=== PATIENT | male | born 1975 | race Caucasian/White ===

== ENCOUNTER 2019-12-27 10:05 | Day surgery (SDC) | payer OTHER, SELFPAY ==
[2019-12-26 13:51] LABS: Probe Check PASS; Specimen Processing Control PASS
[2019-12-27] VITALS (10 sets, daily range): BP systolic 113–133; BP diastolic 60–85; PULSE 63–90; RESP 16; TEMP 36.7–37.6; O2SAT 96–99; BMI 48.9; BMI 22.1
--- NOTE | 2019-12-27 | TONS_PTH ---
PATIENT: STACEY LUDWIG LOC: [facility] [place] U#:[id number] AGE/SX: 44/M ROOM: RE12/27/[address]: Dr. Sukhjinder Delgado MD : 1975 BED: DIS: 12/27/2019 SPEC #: [id number] RECD: 12/27/19 11:39 STATUS: ELMER SADIQ #: [id number] AMPARO: 12/27/19 00:[address]: Sukhjinder Delgado DEPT: SURGICAL PATHOLOGY RECD BY: Leonarda Collado ENTERED: 12/27/19 11:56 SP TYPE: TONSILS OTHR DR: No Primary Care Phys Tissues: A - Tonsil, NOS B - Tonsil, NOS Procedures: Frozen Section (charge) Surgery Specimen Level III Surgery Specimen Level IV HEADER OPERATION: Tonsillectomy, frozen section PRE-OP DIAGNOSIS: Chronic tonsillitis TISSUE SUBMITTED: A - Left tonsil, frozen section, B - Right tonsil FROZEN SECTION DIAGNOSIS A. Left tonsils, tonsillectomy: Negative for malignancy. SJ:roxanne 12/27/19 MICROSCOPIC DIAGNOSIS A. Left tonsil, tonsillectomy: Reactive lymphoid hyperplasia, consistent with chronic tonsillitis. Superficial acute inflammation. Focal actinomyces colonization. Negative for malignancy. B. Right tonsil, tonsillectomy: Reactive lymphoid hyperplasia, consistent with chronic tonsillitis. Superficial acute inflammation. Focal actinomyces colonization. Negative for malignancy. :roxanne 12/31/19 MICROSCOPIC DESCRIPTION Slides are reviewed. GROSS DESCRIPTION A - Received fresh for frozen section diagnosis labeled with the patient's name and designated left tonsil. The specimen consists of a tonsil that weighs 4.3 gm and measures 3 x 2 x 1 cm. The external surface is pink-cortez, smooth, glistening and somewhat lobulated. Focally it is hemorrhagic, granular and bears cautery artifact. The specimen is inked and serially sectioned. Serial cross sections through the tonsil reveal normal tonsillar architecture. The entire specimen is submitted in three cassettes as follows: 1 - frozen section, 2 & 3 - rest of specimen. / FRANCK:roxanne 12/27/19 B - Received in formalin labeled with the patient's name and designated right tonsil. The specimen consists of a tonsil that weighs 4.2 gm and measures 3.5 x 2 x 1.5 cm. The external surface is pink-cortez, smooth, glistening and somewhat lobulated. Focally it is hemorrhagic, granular and bears cautery artifact. Serial cross sections through the tonsil reveal normal tonsillar architecture. The entire specimen is submitted in three cassettes. / FRANCK:roxanne 12/30/19 TC:3 CPT: 08144, 15477, [id number]
[2019-12-27] MEDS: Lactated Ringers 1,000 ML 100 ML IV (10:53)
--- NOTE | 2019-12-27 11:43 | PCM.OPRPT ---
Problem List (1) Chronic tonsillitis Status: Chronic Report of Operation Date of Procedure: 12/27/19 Pre-Operative Diagnosis: Chronic tonsillitis, tonsillar asymmetry Post-Operative Diagnosis: Same Surgery/Procedure Performed:: Tonsillectomy Description of Surgical Findings:: Gary is a 44-year-old male whose had progressive tonsillar enlargement over the last 4 years with progressive enlargement and asymmetry with referred pain which caused him concern for possible neoplasm or infection. Examination confirmed tonsillar asymmetry with tonsillar crypts and excision for definitive evaluation of possible neoplasm was offered. The risks of coronavirus exposure with surgical procedures was discussed and he elected to proceed with surgery despite this risk in the interest of treating his primary complaint. The risks, alternatives, potential complications, and benefits were discussed at length and any questions answered to the patient and/or caregiver's satisfaction. Witnessed informed consent was obtained in the office, and the patient and/or caregiver was agreeable to proceed. Procedure went as follows: The patient was identified in the preoperative holding, brought to the operating room, was placed under general anesthesia and intubated. When appropriate anesthesia was obtained, the head of bed was rotated and the patient prepped and draped in usual sterile fashion. A Christian Landon mouthgag was then placed and the patient suspended from the Conn stand. The oral cavity was examined and noted to have 3+ cryptic tonsillar hypertrophy. The left tonsil was significantly larger in appearance than the right with more abundant tonsillar crypts and stones. Beginning on the right side, the right tonsil was then grasped with a curved tenaculum and dissected from the underlying capsule with monopolar cautery. This was then sent as specimen. Similar procedure was then completed on the contralateral side. The oral and nasal cavities were then irrigated with saline solution. An NG tube was then placed to decompress the stomach. The patient was then returned to anesthesia, revived and extubated having tolerated the procedure well. Type of Anesthesia:: General Anesthesiologist: Sukhjinder Tidewll Special Medications: none Specimen's removed: bilateral tonsils Drains: none Estimated Blood Loss (mL): 0 mL Fluids Replaced: 1000 mL Grafts/Implants Used: none - Complications none - Admit VTE Documentation VTE Present on Admission: No VTE Mechan Device Prophylaxis: SCD's VTE Pharm Prophylaxis ordered?: No
--- NOTE | 2019-12-27 11:50 | DCINST_ITS ---
- Discharge Diagnoses Current Active Problems: Current Active and Chronic Problems Chronic tonsillitis (Chronic) You will use the following diet at home:: No restrictions Discharge Activity: Return to Normal Activity, May not drive while taking narcotic pain medications. Call your doctor if your incision/area has: Sudden Increased Bleeding Call your doctor if you observe: Fever of 101 or Higher, Uncontrolled pain Allergies/Adverse Reactions: Allergies No Known Allergies Allergy (Verified 12/27/19 10:29) Medications to take at Discharge NK 12/24/19 Primary Care Physician: Care Physician,No Primary [Primary Care Provider] - Test Results: Test results from this visit will be discussed in further detail at your follow- up appointment, if applicable. Please Follow Up With: Sukhjinder Delgado MD - may have video appt When: 2 weeks
[2019-12-27] MEDS: Acetaminophen 500 MG Tablet PO (13:39)
== END 2019-12-27 16:00 | disposition home or self-care (01) ==
LOC: SDC 10:07 → AC 10:11
PROVIDERS: Anesthesiology; Referring Provider Otolaryngology; Visit Provider Otolaryngology
PROC: (CPT 42826; principal; 2019-12-27 11:35)
DX: J35.01 Chronic tonsillitis (principal); J03.90 Acute tonsillitis, unspecified; R53.83 Other fatigue; Z11.59 Encounter for screening for other viral diseases
CPT/HCPCS: 00170; 42826; 87635; 88304; 88305; 88331; G2023; J7120; J2405; U0003